=== PATIENT | female | born 1935 | race Caucasian/White ===

== ENCOUNTER 2024-08-07 10:59 | Inpatient (IN) | payer OTHER, SELFPAY ==
[2024-08-07] VITALS (9 sets, daily range): BP systolic 115–157; BP diastolic 53–90; O2SAT 94
--- NOTE | 2024-08-07 03:00 | ED.GENMED ---
History of Present Illness
<FER Schultz - Last Filed: 08/07/24 05:52>
General
Chief Complaint: Weakness
Exam Limitations: dementia
Time Seen by Provider: 08/07/24 02:59
History of Present Illness
History of Present Illness:
Patient is an 89 year old with a history of multiple falls coming into the ED complaining of weakness x 1 hour. She claims she went to go to the bathroom and her legs gave out and couldn't get back up. She denies hitting her head. She denies any
pain anywhere but her right big toe is bloody. Patient says she has generalized weakness throughout her body and rates it as mild. She says she has fallen like this in the past a bunch of times, but has always been able to get back up. Patient
denies saddle anesthesia dysuria numbness tingling chest pain palpitations shortness of breath.
Patient has a history of smoking and drinking.
Past History
<FER Schultz - Last Filed: 08/07/24 05:52>
Past History
ED Past Medical History: Hypothyroidism, Psychiatric and Other (Mild dementia, bundle branch block, lichen planus)
ED Past Surgical History: Gynecological (oophorectomy), Urological (Bladder sling) and Other (Breast biopsy/benign)
Social History
Tobacco: Former smoker
Alcohol: Daily (Wine 3 glasses)
Personal:
Living: with family
Employment: Retired
Family History
Family History: Other (noncontributory)
Review of Systems
<FER Schultz - Last Filed: 08/07/24 05:52>
Review of Systems
Constitutional: Reports no symptoms
Respiratory: Reports no symptoms
Cardiac: Reports no symptoms
ABD/GI: Reports no symptoms
: Reports no symptoms
Neurological: Reports weakness
Phy Exam
<FER Schultz - Last Filed: 08/07/24 05:52>
Physical Exam
Physical Exam:
see physical
Cardiovascular Exam
Cardiovascular Exam: regular rate/rhythm, no edema, no gallop, no JVD and no murmur
Pulmonary Exam
Pulmonary Exam: lungs clear, no respiratory distress, no rales, chest non tender, no crackles, no rhonchi, no stridor, no wheezing and no cough
Sensory
Sensory Exam: intact
Course
<ST MarionID - Last Filed: 08/07/24 05:52>
Orders/Labs/Results
Orders:
Orders
08/07/24
WOUND/OSTOMY CONSULT Routine
Reason for Consult: Great toe and Abdomen
08/07/24 03:01
Cardiac Monitoring- Treatment ONCE
CR Chest - 2 Views Urgent
Comment:
Reason For Exam: weakness
CR Toe(s) Min 2 Vw Right Urgent
Comment:
Reason For Exam: bloody big toe after fall
08/07/24 03:05
Alcohol Urgent
Complete Blood Count/With Diff Urgent
Comprehensive Metabolic Panel Urgent
Free T4 Urgent
Procalcitonin Urgent
PCT Algorithmm Indication: Sepsis
TSH Reflex To Free T4 Urgent
08/07/24 04:22
0.9% Sodium Chloride 500 ml [Nss] 500 ml IV BOLUS
08/07/24 04:55
Admit/Transfer Patient As Directed
Co-Sign Provider:
Level of Care: Observation services
Assign to:: Medical/Surgical
Physician / Group: Hospitalist
Diagnosis: Weakness
PRN Pain Medication Management As Directed
May give lesser potent ordered pain med per pt: Yes
preference::
Protocol:: Medication orders for pain may be administered in a
manner that supports deferring to patient preference
when the pt is:
- Requesting an ordered lesser potent pain medication.
Least to most potent pain medications are defined
as: acetaminophen < NSAID < tramadol < opioids
(morphine, oxycodone, hydromorphone).
- Requesting a lesser dose of the same medication IF
ORDERED.
- Requesting a less intrusive route of administration
if both routes are prescribed by the provider (PO <
IV).
08/07/24 04:56
Code Status As Directed
Resuscitation Status: Full Code
08/07/24 04:58
Add On- LAB Stat
Tests Added?: alcohol level, tsh + reflex free T4
08/07/24 05:00
Flush (0.9% Sodium Chloride) [Flush (Nss)] See Dose Instructions IV PER PROTOCOL
08/07/24 05:18
COVID-19 Antigen Urgent
Source: Nasal Swab
Urinalysis Reflex To Culture Urgent
Date Specimen was Collected: 08/07/24
Time Specimen was Collected: 05:15
Urine Microscopic Reflex Cult Urgent
Urine Culture Urgent
PAULETTE Source: U
Specimen Description:
Date Specimen was Collected: 08/07/24
Time Specimen was Collected: 05:15
08/07/24 Breakfast
Regular
At Your Request: Non-Participating
Does patient need a safe tray?: No
Levothyroxine [Synthroid] 88 mcg PO DAILY @ 0600
08/07/24 07:30
Acetaminophen [Tylenol] 650 mg PO Q4HPRN PRN
Bisacodyl [Dulcolax] 10 mg RECTAL [id number] PRN
Docusate W/Senna [Senokot-S] 1 tablet PO BIDPRN PRN
Polyethylene Glycol Powder [Miralax] 17 grams PO DAILYPRN PRN
Tramadol HCl [Ultram] 50 mg PO Q6HPRN PRN
08/07/24 07:30
Case Management Consult ONCE
Case Management Consult: Discharge Planning
Activity As Directed
Activity Level: With Assistance
Vital Signs As Directed
Frequency: Per unit guidelines
Pt Eval And Treat Routine
Activity Level: With Assistance
DX Deep Vein Thrombosis Video Routine
08/07/24 07:59
Pt Screening Request from Omid Routine
08/07/24 08:00
Calcium Carbonate [Oscal Magdiel 500] 500 mg PO DAILY
FOLic ACID [Folvite] 1 mg PO DAILY
Sertraline HCl [Zoloft] 50 mg PO DAILY
Thiamine HCl [Vitamin B1] 100 mg PO BID
08/07/24 10:00
CefTRIAXone [Rocephin] 1,000 mg IV Q24H
Sterile Water [Sterile Water For Injection] 10 ml IV Q24H
08/07/24 18:00
Enoxaparin Sodium [Lovenox] 40 mg SC QPM
08/07/24 20:00
Ketoconazole [Nizoral 2% Cream] See Dose Instructions TOPICAL BID
08/10/24 08:00
Mirabegron Extended Release [Myrbetriq Extended Release] 50 mg PO DAILY
Abnormal Lab Results
08/07/24 08/07/24
03:05 05:18
WBC 13.3 H 10^3/uL
(4.8-10.8)
RBC 3.80 L 10^6/uL
(4.20-5.40)
Hgb 11.9 L g/dL
(12.0-16.0)
Hct 34.6 L %
(37.0-47.0)
MCH 31.3 H pg
(27.0-31.0)
MPV 11.2 H fL
(7.4-10.4)
Abs Immat Gran (auto) 0.1 H 10^3/uL
(0-0.05)
Absolute Neuts (auto) 10.4 H 10^3/uL
(1.4-6.5)
Absolute Monos (auto) 1.5 H 10^3/uL
(0.1-0.6)
Immature Gran % 0.8 H %
(0-0.5)
Neutrophils % 78.3 H %
(42.2-75.2)
Lymphocytes % 9.4 L %
(20.5-51.1)
Monocytes % 11.2 H %
(1.7-9.3)
Carbon Dioxide 21 L mmol/L
(22-30)
BUN 22 H mg/dl
(7-17)
Glucose 132 H mg/dl
(70-99)
Total Protein 5.9 L g/dl
(6.3-8.2)
TSH (Reflex) 5.36 H uIU/ml
(0.47-4.68)
Ur Occult Blood Reflex 3+ A
(Negative)
Urine Nitrite (Reflex) Positive A
(Negative)
Leukocyte Esterase Rfl 2+ A
(Negative)
Urine RBC 3-6 A /HPF
(0-2)
Urine WBC (Reflex) 50-60 A /HPF
(0-5)
Urine Bacteria (Reflex) Many A
(Negative)
Urine Albumin (Reflex) 1+ A
(Neg - Trace)
08/07/24 03:05
08/07/24 03:05
Vital Signs
Initial and Last Documented VS:
Initial Vital Signs
Temp Pulse Resp BP Pulse Ox
99.3 F 96 18 134/78 98
08/07/24 02:35 08/07/24 02:35 08/07/24 02:35 08/07/24 02:35 08/07/24 02:35
Last Documented Vital Signs
Temp Pulse Resp BP Pulse Ox
97.4 F 78 16 109/64 99
08/09/24 15:19 08/09/24 15:19 08/09/24 15:19 08/09/24 15:19 08/09/24 15:24
<Cas Mcintyre, DO - Last Filed: 08/11/24 22:03>
Orders/Labs/Results
Orders:
Orders
08/07/24
WOUND/OSTOMY CONSULT Routine
Reason for Consult: Great toe and Abdomen
08/07/24 03:01
Cardiac Monitoring- Treatment ONCE
CR Chest - 2 Views Urgent
Comment:
Reason For Exam: weakness
CR Toe(s) Min 2 Vw Right Urgent
Comment:
Reason For Exam: bloody big toe after fall
08/07/24 03:05
Alcohol Urgent
Complete Blood Count/With Diff Urgent
Comprehensive Metabolic Panel Urgent
Free T4 Urgent
Procalcitonin Urgent
PCT Algorithmm Indication: Sepsis
TSH Reflex To Free T4 Urgent
08/07/24 04:22
0.9% Sodium Chloride 500 ml [Nss] 500 ml IV BOLUS
08/07/24 04:55
Admit/Transfer Patient As Directed
Co-Sign Provider:
Level of Care: Observation services
Assign to:: Medical/Surgical
Physician / Group: Hospitalist
Diagnosis: Weakness
PRN Pain Medication Management As Directed
May give lesser potent ordered pain med per pt: Yes
preference::
Protocol:: Medication orders for pain may be administered in a
manner that supports deferring to patient preference
when the pt is:
- Requesting an ordered lesser potent pain medication.
Least to most potent pain medications are defined
as: acetaminophen < NSAID < tramadol < opioids
(morphine, oxycodone, hydromorphone).
- Requesting a lesser dose of the same medication IF
ORDERED.
- Requesting a less intrusive route of administration
if both routes are prescribed by the provider (PO <
IV).
08/07/24 04:56
Code Status As Directed
Resuscitation Status: Full Code
08/07/24 04:58
Add On- LAB Stat
Tests Added?: alcohol level, tsh + reflex free T4
08/07/24 05:00
Flush (0.9% Sodium Chloride) [Flush (Nss)] See Dose Instructions IV PER PROTOCOL
08/07/24 05:18
COVID-19 Antigen Urgent
Source: Nasal Swab
Urinalysis Reflex To Culture Urgent
Date Specimen was Collected: 08/07/24
Time Specimen was Collected: 05:15
Urine Microscopic Reflex Cult Urgent
Urine Culture Urgent
PAULETTE Source: U
Specimen Description:
Date Specimen was Collected: 08/07/24
Time Specimen was Collected: 05:15
08/07/24 Breakfast
Regular
At Your Request: Non-Participating
Does patient need a safe tray?: No
Levothyroxine [Synthroid] 88 mcg PO DAILY @ 0600
08/07/24 07:30
Acetaminophen [Tylenol] 650 mg PO Q4HPRN PRN
Bisacodyl [Dulcolax] 10 mg RECTAL [id number] PRN
Docusate W/Senna [Senokot-S] 1 tablet PO BIDPRN PRN
Polyethylene Glycol Powder [Miralax] 17 grams PO DAILYPRN PRN
Tramadol HCl [Ultram] 50 mg PO Q6HPRN PRN
08/07/24 07:30
Case Management Consult ONCE
Case Management Consult: Discharge Planning
Activity As Directed
Activity Level: With Assistance
Vital Signs As Directed
Frequency: Per unit guidelines
Pt Eval And Treat Routine
Activity Level: With Assistance
DX Deep Vein Thrombosis Video Routine
08/07/24 07:59
Pt Screening Request from Omid Routine
08/07/24 08:00
Calcium Carbonate [Oscal Magdiel 500] 500 mg PO DAILY
FOLic ACID [Folvite] 1 mg PO DAILY
Sertraline HCl [Zoloft] 50 mg PO DAILY
Thiamine HCl [Vitamin B1] 100 mg PO BID
08/07/24 10:00
CefTRIAXone [Rocephin] 1,000 mg IV Q24H
Sterile Water [Sterile Water For Injection] 10 ml IV Q24H
08/07/24 18:00
Enoxaparin Sodium [Lovenox] 40 mg SC QPM
08/07/24 20:00
Ketoconazole [Nizoral 2% Cream] See Dose Instructions TOPICAL BID
08/10/24 08:00
Mirabegron Extended Release [Myrbetriq Extended Release] 50 mg PO DAILY
Abnormal Lab Results
08/07/24 08/07/24
03:05 05:18
WBC 13.3 H 10^3/uL
(4.8-10.8)
RBC 3.80 L 10^6/uL
(4.20-5.40)
Hgb 11.9 L g/dL
(12.0-16.0)
Hct 34.6 L %
(37.0-47.0)
MCH 31.3 H pg
(27.0-31.0)
MPV 11.2 H fL
(7.4-10.4)
Abs Immat Gran (auto) 0.1 H 10^3/uL
(0-0.05)
Absolute Neuts (auto) 10.4 H 10^3/uL
(1.4-6.5)
Absolute Monos (auto) 1.5 H 10^3/uL
(0.1-0.6)
Immature Gran % 0.8 H %
(0-0.5)
Neutrophils % 78.3 H %
(42.2-75.2)
Lymphocytes % 9.4 L %
(20.5-51.1)
Monocytes % 11.2 H %
(1.7-9.3)
Carbon Dioxide 21 L mmol/L
(22-30)
BUN 22 H mg/dl
(7-17)
Glucose 132 H mg/dl
(70-99)
Total Protein 5.9 L g/dl
(6.3-8.2)
TSH (Reflex) 5.36 H uIU/ml
(0.47-4.68)
Ur Occult Blood Reflex 3+ A
(Negative)
Urine Nitrite (Reflex) Positive A
(Negative)
Leukocyte Esterase Rfl 2+ A
(Negative)
Urine RBC 3-6 A /HPF
(0-2)
Urine WBC (Reflex) 50-60 A /HPF
(0-5)
Urine Bacteria (Reflex) Many A
(Negative)
Urine Albumin (Reflex) 1+ A
(Neg - Trace)
08/07/24 03:05
08/07/24 03:05
Vital Signs
Initial and Last Documented VS:
Initial Vital Signs
Temp Pulse Resp BP Pulse Ox
99.3 F 96 18 134/78 98
08/07/24 02:35 08/07/24 02:35 08/07/24 02:35 08/07/24 02:35 08/07/24 02:35
Last Documented Vital Signs
Temp Pulse Resp BP Pulse Ox
97.4 F 78 16 109/64 99
08/09/24 15:19 08/09/24 15:19 08/09/24 15:19 08/09/24 15:19 08/09/24 15:24
<FER Schultz - Last Filed: 08/07/24 05:52>
MDM/Problems Addressed
Differential Diagnosis Includes:
broken big toe, sepsis, weakness
MDM/Problems Addressed:
work up for sepsis blood work and get xray on her right foot. 535a update patient is asleep
<FER Schultz - Last Filed: 08/07/24 05:52>
*Critical Care Note
Total Time (30-74mins, 75-104mins- exclusive of procedures): Not Applicable
ED Attending Note
<FER Schultz - Last Filed: 08/07/24 05:52>
-
Portions of this chart may have been created with voice recognition software.� Occasional wrong word or��sound alike� substitutions may have occurred due to the inherent limitations of voice recognition software.
<Cas Mcintyre DO - Last Filed: 08/11/24 22:03>
ED Attending Note
Patient seen and examined by attending physician: Yes
I performed the substantive portion of visit, reviewed & personally made and approve the management plan that is documented in note by myself or LUZMA.: Yes
ED Attending Note:
Pleasantly demented 89-year-old female from home presents via EMS after a fall. Patient was walking to the bathroom when she started to feel weak. She reports that her legs gave out. Patient attempted to sit on the ground but is unsure if she
fell in the process. She was able to get back up and states that she feels too weak. Denies fever but states she did feel flushed. Patient reports no chest pain or shortness of breath. Patient was seen in conjunction with the PA student. I have
reviewed and agree with the history and treatment plan presented. On my independent physical exam, patient is awake, alert, and able to respond to questions. Heart is regular rate and rhythm. Lungs are clear bilaterally. Abdomen is soft
nontender. Skin is warm and dry. Moves all 4 extremities. There is some bruising and dried blood about the great toe on the right. She has very mild tenderness to palpation. There is some bruising about the right great toe. The nail is
slightly avulsed. There is good capillary refill..
Discharge Plan
Departure
Patient Disposition: Admit
Date of Disposition: 08/07/24
Time of Disposition: 04:28
Admit to: Telemetry
Presentation/result/management discussed w/ accepting MD/DO: Hospitalist
Consults for patient: Case Management
Condition: Fair
Discharge Problem:
Weakness, Dementia
Interventions
Interventions:
*Risk Screen - Suicide Last Done: 08/07/24 02:35
*General Assessment Last Done: 08/07/24 02:35
*Neglect/Abuse Screening Last Done: 08/07/24 02:35
ED- Fall Risk Assessment Last Done: 08/07/24 03:23
*ED COVID-19 Vaccine History Last Done: 08/07/24 02:35
*Nursing Disposition Last Done: 08/07/24 07:17
ED- Cardiac Assessment Last Done: 08/07/24 03:23
ED- Neurological Assessment Last Done: 08/07/24 03:23
ED- Pulmonary Assessment Last Done: 08/07/24 03:23
Discharge Date and Time
Discharge Date/Time: 08/07/24 07:18
--- NOTE | 2024-08-07 03:12 | DOWNTIME ---
There was a [employer] Downtime on 08/07/2024 from 0100 to 08/07/2024 at 0300. Downtime documentation of patient's care, including medication administrations, has been reconciled in the electronic record per guidelines. Refer to the
patient's paper chart under the miscellaneous tab to see printed paper medication records and downtime forms.
[2024-08-07 03:13] LABS: % Basophils 0.2 % (0-2); % Eosinophils 0.1 % (0-6); % Immature Granulocytes 0.8 % (0-0.5); % Lymphocytes 9.4 % (20.5-51.1); % Monocytes 11.2 % (1.7-9.3); % Neutrophils 78.3 % (42.2-75.2); Absolute Immature Granulocytes 0.1 10^3/uL (0-0.05); Absolute Lymphocytes 1.2 10^3/uL (1.2-3.4); Absolute Monocytes 1.5 10^3/uL (0.1-0.6); Absolute Neutrophils 10.4 10^3/uL (1.4-6.5); Hematocrit 34.6 % (37.0-47.0); Hemoglobin 11.9 g/dL (12.0-16.0); Mean Corp Hgb Conc. 34.4 g/dL (33.0-37.0); Mean Corpuscular Hgb 31.3 pg (27.0-31.0); Mean Corpuscular Volume 91.1 fL (81.0-99.0); Mean Platelet Volume 11.2 fL (7.4-10.4); Nucleated Red Blood Cells % 0 %; Platelet Count 205 10^3/uL (130-400); Red Cell Dist. Width 12.8 % (11.5-14.5); White Blood Cell Count 13.3 10^3/uL (4.8-10.8)
[2024-08-07 03:26] LABS: ALT (SGPT) 22 U/L (0-35); AST (SGOT) 34 U/L (14-36); Albumin 3.9 g/dl (3.5-5.0); Alkaline Phosphatase 105 U/L (38-126); Blood Urea Nitrogen 22 mg/dl (7-17); Carbon Dioxide 21 mmol/L (22-30); Chloride 100 mmol/L (98-107); Estimated Creatinine Clearance 44 ml/min; Glucose 132 mg/dl (70-99); Potassium 4.2 mmol/L (3.5-5.1); Sodium 135 mmol/L (135-145); Total Bilirubin 0.5 mg/dl (0.2-1.3); Total Protein 5.9 g/dl (6.3-8.2); eGFR > 60.00
[2024-08-07 03:42] LABS: Procalcitonin 0.18 ng/ml (0.0-0.25)
--- NOTE | 2024-08-07 04:33 | HPS.HSE ---
Family Physician
-
Family Physician: Marty Flores
Chief Complaint
-
Weakness
History of Present Illness
This is a 89-year-old female who has past medical history significant for dementia, hypothyroidism, depression, and anxiety presenting to the emergency department after having episode of fall at home.
Patient unable to provide much history. She still lives at home with her elderly spouse. History provided to staff by the daughter. The daughter reported that EMS was called twice for assist. The first time was at 4 PM and the patient was
assisted and remained at home. The second time was later in the evening when the patient was walking to the bathroom and pain leg gave way and she just went down to the floor. This was observed by the daughter and the patient did not hit her head.
EMS was called once again for assist as the patient could not get up. She was just sitting on the floor. She was then brought to the ED. Patient herself states that she only remembers not being able to get up from the floor but not but not how
she fell or how she stubbed her toe. Nursing staff wonder about the patient had feces covering lower back and buttocks. She also moisture associated skin injury in the groin as well as below the left breast. She can answer simple yes/no questions
and denies any symptoms. She lives with her elderly spouse who is also has cognitive decline. Patient she denies any urinary symptoms, fevers chills cough wheezing chest pain palpitations lightheadedness dizziness or shortness of breath. She has
had no lower extremity swelling. She denies having any new pain in her back, hips knees or legs.
In the emergency department she had a low-grade temp of 90.3, blood pressure was 134/78 pulse 95 with normal saturation on room air. Chest x-ray showed no acute infiltrates. CBC shows a white count of 13.3 but otherwise unremarkable. Chemistries
showed a normal sodium potassium BUN and creatinine. She had x-ray of the right foot for small toe ecchymosis. There was no obvious fracture or dislocation at this time. Urinalysis is pending availability of urine.
Medical History
Past Medical History
Past Medical History: Reports Dementia and Hypothyroidism
Past Surgical History: Reports Other (Bladder sling, breast biopsy-benign, oophorectomy)
Social History
Tobacco: Former Smoker
Alcohol: Other (Prior notes indicate that she drinks alcohol daily but she is unable to provide history of Distamine this time.)
Drug: None
Personal:
Living: With Family
Employment: Retired
Family History
Family History: Not pertinent
Allergies / Home Medications
Allergies reflects when Allergies were last updated in [employer].
Home Medications with original date entered in [employer]
Allergy/Medication List:
Allergies
Allergy/AdvReac Type Severity Reaction Status Date / Time
No Known Allergies Allergy Verified 08/07/24 03:12
Home Medications
calcium carbonate 500 mg PO DAILY 12/16/09
levothyroxine 88 mcg tablet 88 mcg PO DAILY 01/17/23
mirabegron 50 mg tablet,extended release 24 hr (Myrbetriq) 50 mg PO DAILY 01/17/23
sertraline 100 mg tablet 100 mg PO DAILY 01/17/23
folic acid 1 mg tablet 1 mg PO DAILY #0 tabs 01/24/23
thiamine HCl (vitamin B1) 100 mg tablet 100 mg PO BID #0 tabs 01/24/23
Review of Systems
-
Unable to obtain full review of systems at this time due to: Dementia
Physical Exam
Vital Signs
Vital Signs
Temp Pulse Resp BP Pulse Ox
99.3 F 95 23 134/78 94
08/07/24 02:35 08/07/24 04:00 08/07/24 03:15 08/07/24 02:35 08/07/24 04:00
Physical Exam
General: Well Nourished, No Apparent Distress, Comfortable and Conversant
HEENT: NormoCephalic, Anicteric, Moist mucous membranes and Atraumatic
Respiratory: Clear
Cardiac: S1/S2 and Regular Rhythm
Breast: Deferred by me
GI: Soft, Non Tender, Normal Bowel Sounds and Distended
Rectal: Deferred by Provider
Genito-urinary: No costovertebral tender
Musculoskeletal: No Clubbing, No Cyanosis and No Edema
Skin: Warm and Rash (Bilateral groin moisture associated dermatitis.)
Neuro: Awake, Oriented (to person only), No Motor Deficits, Cranial Nerves Intact and No Sensory Deficits
Hematologic/Lymphatic: No Lymphadenopathy
Psych: Calm and Confused
Laboratory Results
-
08/07/24 03:05
08/07/24 03:05
Laboratory Results
Total Bilirubin 0.5 mg/dl (0.2-1.3) 08/07/24 03:05
AST 34 U/L (14-36) 08/07/24 03:05
ALT 22 U/L (0-35) 08/07/24 03:05
Alkaline Phosphatase 105 U/L (38-126) 08/07/24 03:05
Data Reviewed
-
Diagnostic Radiology: Image Personally Visualized and interpreted
Lab Data: Labs Reviewed by me
Old Records: Reviewed
Impression/Plan
-
IMPRESSION:
89-year-old with history of hypothyroidism, anxiety/depression and dementia who presents to the emergency department from home following EMS call for assist. Patient apparently went down without any significant injury and was unable to get herself
up from a standing position. He apparently has a walker but no other assist devices at home. Initial evaluation in the ED shows no acute abnormalities. Specifically she was hemodynamically stable afebrile and in no acute distress. UA is pending.
Chest x-ray is clear. He had a slight leukocytosis. Chemistries were all within normal limits. Procalcitonin was negative.
PLAN:
1. Weakness - Patient unable to get up from sitted position twice today and was brought to ED. Neurological exam is non-focal. Did not detect signficant unilateral weakness in the upper or lower extremities. No sensory deficits. Had evidence of
feces on the lower back on initial arrival but denies diarrhea or incontinence. No obvious infection at this time.
- admit to med surg
- possibly mild dehydration, getting iv fluid in ED x 1
- u/a pending
- check etoh, tsh, covid 19
- pt eval.
2. Social - Patient lives with elderly spouse with cognitive decline. She appears to have more significant decline in cognitive function compared to last year. Poor sanitation and care based on history and skin findings.
- case management, patient may need placement
- to discuss with daughter.
3. Hypothyroid -
- check tsh/free t4
4. Anxiety/depression
- continue sertraline
DVT PPX - lovenox sq
Code status - full code.
[2024-08-07] MEDS: NSS 500 IV (04:39)
[2024-08-07 05:32] LABS: Alcohol None Detected
[2024-08-07 05:34] LABS: COVID-19 Antigen Negative (Negative); Urine Albumin 1+ (Neg - Trace); Urine Bilirubin Negative (Negative); Urine Character Clear (Clear); Urine Color Yellow; Urine Glucose Negative (Negative); Urine Ketone Negative (Negative); Urine Leukocyte 2+ (Negative); Urine Nitrite Positive (Negative); Urine Occult Blood 3+ (Negative); Urine Urobilinogen Negative (Neg - 1+)
[2024-08-07 05:43] LABS: TSH Reflex To Free T4 5.36 uIU/ml (0.47-4.68)
[2024-08-07 06:02] LABS: Urine Bacteria Many (Negative); Urine Squamous Cell 0-2 /LPF (Few); Urine White Cell 50-60 /HPF (0-5)
[2024-08-07 06:13] LABS: Free T4 1.19 ng/dl (0.78-2.19)
[2024-08-07] MEDS: VITAMIN B1 100 MG PO ×2 (09:12→20:39)
[2024-08-07] MEDS: OSCAL CAL 500 500 MG PO (09:12)
[2024-08-07] MEDS: ZOLOFT 50 MG PO (09:12)
[2024-08-07] MEDS: FOLVITE 1 MG PO (09:12)
[2024-08-07] MEDS: SYNTHROID PO (09:12)
[2024-08-07] MEDS: ROCEPHIN 1000 MG IV (09:13)
[2024-08-07] MEDS: STERILE WATER FOR INJECTION 10 ML IV (09:13)
--- NOTE | 2024-08-07 10:16 | W.PN.UPDATE ---
Update Note
Progress Note Update
No complaints this morning. Denies lightheadedness, dizziness, chest pain, shortness of breath, nausea, vomiting, diarrhea, constipation, abdominal pain. Tells me she came to ER for weakness.
Gen: Resting comfortably in bed, no acute distress. AAO to person and place, did not know date. Frail, elderly
Heart/lungs: RRR. CTAB. Nonlabored breathing.
GI: Bowel sounds present. Abdomen soft, nontender, nondistended.
MSK: Warm, well perfused. Dorsalis pedal pulses palpable bilaterally.
A/P
UA suggestive of UTI. Urine culture pending.
Begin IV ceftriaxone, reassess antibiotics when urine culture results
Continue IVF
TSH elevated 5.36. Will assess patient compliance with synthroid prior to titrating dose
Anemia- appears to be at baseline, no concern for acute blood loss
See same day H&P for additional details
--- NOTE | 2024-08-07 10:17 | WOUNDNOTE ---
R GREAT TOE NAIL
--- NOTE | 2024-08-07 10:17 | WOUNDNOTE ---
BTW R GREAT TOE AND 2ND TOE
--- NOTE | 2024-08-07 10:18 | WOUNDNOTE ---
L UPPER ABDOMEN/ BREAST SKIN FOLD
--- NOTE | 2024-08-07 10:19 | WOUNDNOTE ---
WON RN note: Patient admitted with UTI.
See H&P for complete history. Lives with daughter Cristal.
PMH: R breast lumpectomy, lichen planus, BBB, L leg biopsy, ovary removal, cataract surgery and frequent falls.
Wound Location and type/assessment: Patient admitted with: L upper abdomen/breast skin fold with scattered angry red fungal rash, barrier cream in use. R breast with intact skin. R great toe with dried blood, after cleaning no open wounds visible.
Residual dried blood around toe nail, patient confirmed recent nail trim done. Toe x ray pending. Patient able to turn self to side, Sacrum and heels are blanchable red. Silicone foam in use on sacrum.
Appetite: Poor, had few bites of oatmeal. Patient reports she eats minimal at home, daughter cooks dinner.
Pressure redistribution devices in place: On [employer] bed, asked PCT to apply air overlay provided. Air chair cushion.
Plan: Will order stronger fungal cream for L upper abdomen/breast. Skin prep applied to R great toe nail, open to air. Can apply dry dressing if starts to bleed, for now site is dry. Applied adhesive foams to heels to protect. Pillow placed under
calves by PCT. Brought in air cushion to use when sitting.
Will confirm orders with hospitalist and updated nurse Hyacinth on the above.
Updated care plan and will follow as needed.
Note to case management of equipment requested for discharge: None.
[2024-08-07] MEDS: LOVENOX 40 MG SC (18:17)
[2024-08-07] MEDS: NIZORAL 2% CREAM 1 APPLIC TOPICAL (20:39)
[2024-08-07] MEDS: TYLENOL 650 MG PO (23:23)
[2024-08-08] MEDS: DESENEX/MITRAZOL/ZEASORB 1 APPLIC TOPICAL ×3 (01:00→20:13)
[2024-08-08] MEDS: SYNTHROID 88 MCG PO (05:55)
[2024-08-08 07:30] VITALS: BP 132/66
[2024-08-08 07:35] LABS: Hemoglobin 12.7 g/dL (12.0-16.0); Mean Corp Hgb Conc. 34.3 g/dL (33.0-37.0); Mean Corpuscular Hgb 31.4 pg (27.0-31.0); Mean Corpuscular Volume 91.4 fL (81.0-99.0); Mean Platelet Volume 11.7 fL (7.4-10.4); Platelet Count 230 10^3/uL (130-400); Red Blood Cell Count 4.05 10^6/uL (4.20-5.40); White Blood Cell Count 21.8 10^3/uL (4.8-10.8)
[2024-08-08 08:02] LABS: Blood Urea Nitrogen 19 mg/dl (7-17); Calcium 8.8 mg/dl (8.4-10.2); Carbon Dioxide 26 mmol/L (22-30); Chloride 98 mmol/L (98-107); Estimated Creatinine Clearance 38 ml/min; Glucose 99 mg/dl (70-99); Iron 21 ug/dl (37-170); Potassium 4.1 mmol/L (3.5-5.1); Sodium 135 mmol/L (135-145); eGFR > 60.00
[2024-08-08 08:11] LABS: Percent Saturation 9 % (20-50); Total Iron Binding Capacity 216 ug/dl (265-497)
[2024-08-08] MEDS: VITAMIN B1 100 MG PO ×2 (08:17→20:13)
[2024-08-08] MEDS: OSCAL CAL 500 500 MG PO (08:17)
[2024-08-08] MEDS: NIZORAL 2% CREAM 1 APPLIC TOPICAL ×2 (08:17→20:14)
[2024-08-08] MEDS: FOLVITE 1 MG PO (08:17)
[2024-08-08] MEDS: ZOLOFT 50 MG PO (08:17)
--- NOTE | 2024-08-08 10:30 | W.PN.HOSP.TC ---
Addendum entered and electronically signed by Drew Jenkins MD 08/08/24 13:04:
I saw and evaluated the patient. I reviewed the resident�s note and agree with findings and plan as documented in the resident�s note.
Denies CP/SOB. Reports lower abdominal pressure.
Gen: NAD, Awake and alert
Eyes: EOMI, PERRLA, no scleral icterus.
Neck: supple.
CV: RRR, +S1/S2, no m/r/g.
Resp: CTAB, no rales, wheezes, or rhonchi.
Abd: +BS, soft, mild TTP in the lower abdomen, ND
Skin: No rashes.
Neuro: CN 2-12 intact, non-focal.
Psych: slightly flat affect.
CT brain: No acute intracranial abnormality noted.
Generalized weakness and ambulatory dysfunction:
-Patient with history of NPH s/p shunt
-CT brain unremarkable as above
-PT/OT
UTI:
-with worsening leukocytosis
-check BCxs
-c/s ID
-afebrile, hemodynamically stable
Original Note:
Today's Communication/Plan
-
head CT this AM
Assessment / Plan
Assessment / Plan
89yo F with PMH dementia, hypothyroidism, normal pressure hydrocephalus s/p shunt, who presented to ED 08/07 for weakness and multiple falls.
Generalized weakness
Ambulatory dysfunction
H/o normal pressure hydrocephalus s/p shunt
- Obtain head CT
- PT eval- rec SNF at discharge
- OT eval ordered
- Continue IVF
- Fall precautions
UTI
Leukocytosis
- UA consistent with UTI, urine culture E coli
- WBC 13.3 --> 21.8
- Remains afebrile
- Continue IV ceftriaxone, will reassess antibiotics when sensitivities available
- Trend cbc, follow temperature curve
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
- Quant alcohol negative on admission
- MSAS scores 2, continue to monitor
- Continue home thiamine supplement
Hypothyroidism
- TSH elevated 5.36
- Continue home synthroid
Chronic anemia
- Hgb 11.9 on admission --> 12.7, appears to be at baseline
- No concern for acute blood loss
- Suspect iron deficiency, ferritin pending
- IV Fe
Depression/anxiety
- Continue home sertraline 50mg daily
Code status: full
VTE ppx: lovenox 40mg sc qpm
Diet: regular
Dispo planning: likely SNF at discharge
Anticipated Discharge: 24 - 48 hours
Subjective/Interval History
-
Date of Service: August 08, 2024
No acute events overnight. Reports mild back pain this morning. Denies headache, lightheadedness, dizziness, chest pain, shortness of breath, nausea, vomiting, diarrhea, constipation.
Objective Data
-
Labs:
Laboratory Results
08/08/24
06:56
WBC 21.8 H
Hgb 12.7
Hct 37.0
Plt Count 230
Sodium 135
Potassium 4.1
Chloride 98
Carbon Dioxide 26
BUN 19 H
Creatinine 0.8
Glucose 99
Calcium 8.8
Vital Signs:
Vital Signs
Temp Pulse Resp BP Pulse Ox
97.7 F 71 16 132/66 98
08/08/24 07:30 08/08/24 07:30 08/08/24 07:30 08/08/24 07:30 08/08/24 07:30
I&O
08/07/24 08/08/24 08/09/24
06:59 06:59 06:59
Intake Total 960 / 960
Output Total 350 / 350
Balance 610 / 610
Review of Systems
-
History Source: Patient
All other systems: Reviewed and negative
Physical Exam
-
General: Well Developed, No Apparent Distress, Comfortable, Appears Chronically Ill and Cachectic
HEENT: Normocephalic and Atraumatic
Respiratory: Clear to Auscultation (anterior lung quiñonez) and Non Labored Respirations
Cardiac: Regular Rhythm and S1/S2
GI: Soft, Nontender, Nondistended and Normal Bowel Sounds
Musculoskeletal: No Cyanosis and No Edema
Skin: Warm and Dry
Neuro: Awake and Alert
Psych: Calm and Apparent Dementia
Data Reviewed
-
Diagnostic Radiology: Image personally visualized and interpreted, Report Reviewed by me and Discussed with Physician
CT Scan: Image personally visualized and interpreted, Report Reviewed by me and Discussed with Physician
Labs: Labs Reviewed by me and Discussed with Physician
[2024-08-08] MEDS: STERILE WATER FOR INJECTION 10 ML IV (10:37)
[2024-08-08] MEDS: ROCEPHIN 1000 MG IV (10:37)
[2024-08-08 11:50] VITALS: BP 132/66; PULSE 71
[2024-08-08 11:52] VITALS: BP 111/66; PULSE 73; O2SAT 98
--- NOTE | 2024-08-08 13:10 | CON.ID ---
Consultation
-
Date/Time Consultation Requested: 08/08/2024 1116
Date/Time Consultation Performed: 08/08/2024 1311
Requesting Provider: Dr. Jenkins
Performing Provider: Dr. Cobb
Reason for Consultation: Leukocytosis; suspected urinary tract infection
Chief Complaint / Past History
History of Present Illness
Christa Rivero is an 89-year-old female being evaluated the request of Dr. Jenkins in regards to leukocytosis and suspected urinary tract infection. History is obtained from chart review, along with patient interview.
The patient has a history of hypothyroidism and mild dementia and presented to [facility] on 08/07 following several falls at home. According to reviewed records the patient had several falls recently and EMS was called to assist getting her
up. She was brought to the hospital for the first time, but when they were called out again it was deemed that she may need further care and she was brought to the ED. She is not sure whether she hit her head during the falls. She denies any
recent urinary symptoms, including denying dysuria and hematuria. She denies any cough or shortness of breath. She denies any fevers or chills, but notes that she is always cold.
At admission she was found to have a low-grade leukocytosis which has increased today. Urine cultures are growing E. coli, and Infectious Diseases is asked to comment on further antimicrobial therapy.
Past History
Additional Past Medical History:
Hypothyroidism
Dementia
Lichen planus
Additional Past Surgical History:
Oophorectomy
Bladder sling
Breast biopsy
Allergy History:
No Known Allergies Allergy (Verified 08/07/24 03:12)
Medications Reviewed: Yes
Current Antibiotics:
Ceftriaxone 1 g IV every 24 hours
Social History
Tobacco: Former Smoker
Alcohol: None
Drug: None
Personal:
Living: With Family
Employment: Retired
Family History
Family History: Not Pertinent
Review of Systems
Vital Signs
Temp Pulse Resp BP Pulse Ox
97.7 F 71 16 132/66 98
08/08/24 07:30 08/08/24 07:30 08/08/24 07:30 08/08/24 07:30 08/08/24 08:20
Physical Exam
Physical Exam
Constitutional: No Acute Distress, Comfortable, Chronically Ill, Non-toxic and Cachetic
Head: Normocephalic
Eyes: Pupils Equal, Pupils Round, No Conjunctival Hemorrhage and Sclera Anicteric
Oral: No Thrush and No Ulcers
Cardiovascular: Regular Rate and S1/S2; Negative S3/S4
Pulmonary: Clear; Negative Wheezes, Rales or Rhonchi
Gastrointestinal: Soft, Non Tender, Non Distended, Normal Bowel Sounds, No Rebound and No Guarding
Extremities: Negative Edema, Cyanosis or Erythema
Musculoskeletal: Negative Joint Swelling
Skin: Warm and Dry; Negative Rash or Jaundice
Neurological: Awake and Alert
Psychological: Confused
.
Lab / Diagnostic Study Results
08/08/24 06:56
08/08/24 06:56
Abs Immat Gran (auto) 0.1 10^3/uL (0-0.05) H 08/07/24 03:05
Absolute Neuts (auto) 10.4 10^3/uL (1.4-6.5) H 08/07/24 03:05
Absolute Lymphs (auto) 1.2 10^3/uL (1.2-3.4) 08/07/24 03:05
Absolute Monos (auto) 1.5 10^3/uL (0.1-0.6) H 08/07/24 03:05
Absolute Basos (auto) 0.0 10^3/uL (0-0.2) 08/07/24 03:05
Immature Gran % 0.8 % (0-0.5) H 08/07/24 03:05
Neutrophils % 78.3 % (42.2-75.2) H 08/07/24 03:05
Lymphocytes % 9.4 % (20.5-51.1) L 08/07/24 03:05
Monocytes % 11.2 % (1.7-9.3) H 08/07/24 03:05
Eosinophils % 0.1 % (0-6) 08/07/24 03:05
Basophils % 0.2 % (0-2) 08/07/24 03:05
Procalcitonin 0.18 ng/ml (0.0-0.25) 08/07/24 03:05
Ur Squamous Epith Cells 0-2 /LPF (Few) 08/07/24 05:18
Microbiology Results
Micro:
08/08/24 11:53 Blood Culture - Pending
Blood/Venous
08/08/24 11:26 Blood Culture - Pending
Blood/Venous
08/07/24 05:18 Urine Culture - Preliminary
Urine Escherichia coli
Imaging:
08/08/2024 CT head with contrast: No acute intracranial abnormality noted. Please see full dictation for additional detail.
08/07/2024 chest x-ray (2 view): No acute cardiopulmonary process noted.
Assessment / Plan
Leukocytosis; rising ?Reactive vs infection
Bacteriuria
Recent fall
Hypothyroidism
Dementia
Recommendations:
Old records reviewed, and patient has history of pansensitive E. coli and blood in urine (2022)
Continue empiric ceftriaxone for the present.
Monitor white count and temperature curve.
Await further culture data to guide antimicrobial selection and potential de-escalation.
Further recommendations as additional data is returned.
[2024-08-08] MEDS: FERRLECIT 110 MG IV (13:35)
[2024-08-08 15:15] VITALS: BP 114/63
--- NOTE | 2024-08-08 15:22 | CM ---
KALI spoke with Christa at bedside regarding discharge to SNF. She has requested [facility] for transfer. CM placed referral to [facility] in [facility].
Await response from [facility] Admissions regarding ability to accept for short term SNF transfer. Will need authorization from [facility] for transfer to SNF pending acceptance at [facility].
KALI will continue to follow.
--- NOTE | 2024-08-08 16:43 | CM ---
Addendum entered by Radha Cano 08/09/24 14:32:
KALI spoke with April about transfer to [facility]. Call placed to her daughter to make her aware of transfer plans.
PLAN: Transfer to [facility] via Ambulance transport arranged for 6:30 PM.
[facility] Report:[phone]
[facility]
Original Note:
KALI submitted auth request for SNF admission to [facility] for April via [employer].
Auth approved for dates of service 08-09-2024 to 08-15-2024
Authorization number: [id number]
Plan: Transfer to [facility]. Request sent to [facility] [employer] this afternoon requesting ambulance transport to [facility] in AM with requested time of 11am.
[2024-08-08] MEDS: LOVENOX 40 MG SC (17:54)
[2024-08-08] MEDS: TYLENOL 650 MG PO (22:59)
[2024-08-08 23:28] VITALS: BP 145/74
[2024-08-09] MEDS: SYNTHROID 88 MCG PO (05:06)
[2024-08-09 07:10] VITALS: BP 140/79
[2024-08-09 07:26] LABS: Hematocrit 33.4 % (37.0-47.0); Hemoglobin 11.3 g/dL (12.0-16.0); Mean Corp Hgb Conc. 33.8 g/dL (33.0-37.0); Mean Corpuscular Volume 88.6 fL (81.0-99.0); Mean Platelet Volume 11.8 fL (7.4-10.4); Platelet Count 236 10^3/uL (130-400); Red Blood Cell Count 3.77 10^6/uL (4.20-5.40); Red Cell Dist. Width 13.1 % (11.5-14.5); White Blood Cell Count 17.6 10^3/uL (4.8-10.8)
[2024-08-09 07:53] LABS: Blood Urea Nitrogen 19 mg/dl (7-17); Calcium 8.7 mg/dl (8.4-10.2); Carbon Dioxide 25 mmol/L (22-30); Chloride 98 mmol/L (98-107); Estimated Creatinine Clearance 38 ml/min; Glucose 84 mg/dl (70-99); Potassium 3.8 mmol/L (3.5-5.1); Sodium 136 mmol/L (135-145); eGFR > 60.00
[2024-08-09] MEDS: DESENEX/MITRAZOL/ZEASORB 1 APPLIC TOPICAL (07:54)
[2024-08-09 07:55] VITALS: BP 140/79
[2024-08-09] MEDS: NIZORAL 2% CREAM 1 APPLIC TOPICAL (07:55)
[2024-08-09] MEDS: ZOLOFT 50 MG PO (07:55)
[2024-08-09] MEDS: FOLVITE 1 MG PO (07:55)
[2024-08-09] MEDS: VITAMIN B1 100 MG PO (07:55)
[2024-08-09] MEDS: OSCAL CAL 500 500 MG PO (07:56)
[2024-08-09] MEDS: FLUSH (NSS) 1 FLUSH IV ×2 (10:01→13:58)
[2024-08-09] MEDS: ROCEPHIN 1000 MG IV (10:01)
[2024-08-09] MEDS: STERILE WATER FOR INJECTION 10 ML IV (10:01)
--- NOTE | 2024-08-09 10:18 | W.PN.HOSP.TC ---
Addendum entered and electronically signed by Rosie Muro MD 08/09/24 16:28:
[facility] kidney neg
Addendum entered and electronically signed by Rosie Muro MD 08/09/24 14:31:
89-year-old female with falls. Patient drinks alcohol daily also per discussion with daughter.
I personally performed a history and physical exam of the patient and discussed management with the resident. I reviewed the resident's note and agree with the documented findings and plan of care HPI/CC except for changes in my documentation.
Apparent cognitive dysfunction
Vascular system S1-S2 appreciated
Chest clear to auscultation
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
CT head unremarkable
B12 borderline needs replacement also
PT OT
Neurology follow-up with patient's daughter
# Fever/E Coli UTI-continue amoxicillin
Normal creatinine
History of questionable right renal collecting system dilatation without stone-2022
[facility] kidneys
# Elevated white count/leukocytosis was even seen in December 2022-if this does not get better needs to follow-up with truer pinion and wheel
# Iron deficiency-replace iron p.o. outpatient GI follow-up
# Abnormal TSH-repeat as outpatient. Continue same dose of Synthroid
# History of positive SS-A , SS-B and ALBA-daughter was made aware that patient needs to follow-up with a certified nursing assistant instructor
# Cholelithiasis
# Moderate partial L3 vertebral compression fracture
# Cognitive impairment
# Depression-continue sertraline
# Daily alcohol use-cessation counseling. No evidence of withdrawal at present I discussed this with patient's daughter also
# Ex-smoker
# DVT prophylaxis-Lovenox
# Full code
[facility] kidneys before discharge
Discussed with infectious disease
Discussed with patient's daughter on the phone in detail
Total discharge coordination time more than 30 minutes
Original Note:
Today's Communication/Plan
-
discharge to SNF today
Assessment / Plan
Assessment / Plan
89yo F with PMH dementia, hypothyroidism, normal pressure hydrocephalus s/p shunt, who presented to ED 08/07 for weakness and multiple falls.
Generalized weakness
Ambulatory dysfunction
H/o normal pressure hydrocephalus s/p shunt
- Head CT 08/08 stable ventricle size and ventriculostomy catheter; additional findings include stable mild-moderate changes associated with chronic small vessel ischemic disease
- PT/OT eval- rec SNF at discharge
- Fall precautions
- B12 pending
- Stable for hospital discharge. Recommend follow up outpatient with neurosurgeon who placed shunt
UTI
Leukocytosis
- UA consistent with UTI, urine culture E coli pansensitive
- WBC 13.3 --> 21.8 --> 17.6
- Remains afebrile
- Continue IV ceftriaxone while inpatient. Transition to PO amoxicillin at discharge.
- Will need follow up with PCP to monitor leukocytosis, recommend repeat cbc in 1 week. If remains elevated, consider outpatient hematology referral.
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
- Quant alcohol negative on admission
- MSAS scores 1-2, continue to monitor
- Continue home thiamine supplement
Hypothyroidism
- TSH elevated 5.36
- Continue home synthroid
- Follow up with PCP and repeat TSH
Chronic anemia
- Hgb 11.9 on admission --> 11.3 today, appears to be at baseline
- No concern for acute blood loss
- S/p IV Fe given suspicion of iron deficiency
- Ferritin wnl, but Fe, TIBC, %saturation low. More consistent with anemia of chronic disease
- B12 and folate pending
Depression/anxiety
- Continue home sertraline 50mg daily
Code status: full
VTE ppx: lovenox 40mg sc qpm
Diet: regular
Dispo planning: SNF today
Anticipated Discharge: Today
Subjective/Interval History
-
Date of Service: August 09, 2024
No acute events overnight. No complaints. Denies lightheadedness, dizziness, chest pain, shortness of breath, nausea, vomiting, diarrhea, constipation. Tolerating PO diet. Requiring assistance with PT.
Objective Data
-
Labs:
Laboratory Results
08/09/24
06:38
WBC 17.6 H
Hgb 11.3 L
Hct 33.4 L
Plt Count 236
Sodium 136
Potassium 3.8
Chloride 98
Carbon Dioxide 25
BUN 19 H
Creatinine 0.8
Glucose 84
Calcium 8.7
Microbiology
08/07/24 05:18 Urine Culture - Final
Urine Escherichia coli
Vital Signs:
Vital Signs
Temp Pulse Resp BP Pulse Ox
97.5 F 70 16 140/79 98
08/09/24 07:55 08/09/24 07:55 08/09/24 07:55 08/09/24 07:55 08/09/24 07:55
I&O
08/08/24 08/09/24 08/10/24
06:59 06:59 06:59
Intake Total 960 / 960 480 / 480
Output Total 350 / 350
Balance 610 / 610 480 / 480
Review of Systems
-
History Source: Patient
All other systems: Reviewed and negative
Physical Exam
-
General: Well Developed, No Apparent Distress, Comfortable, Appears Chronically Ill and Cachectic
HEENT: Normocephalic and Atraumatic
Respiratory: Clear to Auscultation (anterior lung quiñonez) and Non Labored Respirations
Cardiac: Regular Rhythm and S1/S2
GI: Soft, Nontender, Nondistended and Normal Bowel Sounds
Musculoskeletal: No Cyanosis and No Edema
Skin: Warm and Dry
Neuro: Awake, Alert, Oriented, Nonfocal/Grossly Intact and Other (slow cognition)
Psych: Calm and Apparent Dementia
Data Reviewed
-
Diagnostic Radiology: Image personally visualized and interpreted, Report Reviewed by me and Discussed with Physician
CT Scan: Image personally visualized and interpreted, Report Reviewed by me and Discussed with Physician
Labs: Labs Reviewed by me and Discussed with Physician
--- NOTE | 2024-08-09 11:47 | W.PN.ID1 ---
Date of Service
Date of Service: August 09, 2024
Today's Communication
Transition to oral amoxicillin.
Assessment / Plan
Leukocytosis; rising ?Reactive vs infection
Bacteriuria
Recent fall
Hypothyroidism
Dementia
Recommendations:
Urine culture revealed presence of pansensitive E. coli.
Transition to oral amoxicillin for an additional 5 days.
Chief Complaint
-: UTI
Subjective / Review of Systems
Patient seen and examined. Reports feeling well. Denies specific complaints. No dysuria. No abdominal pain. No flank discomfort.
Vital Signs / Physical Exam
Vital Signs
Vital Signs
Temp Pulse Resp BP Pulse Ox
97.5 F 70 16 140/79 98
08/09/24 07:55 08/09/24 07:55 08/09/24 07:55 08/09/24 07:55 08/09/24 07:55
Physical Exam
Constitutional: No Acute Distress, Comfortable and Non-toxic
Eyes: No Conjunctival Hemorrhage and Sclera Anicteric
Cardiovascular: Regular Rate and S1/S2; Negative S3/S4
Pulmonary: Clear; Negative Wheezes or Rales
Neurological: Awake and Alert
Psychological: Calm
Objective Data
Lab Data
Lab Results
08/09/24 06:38
08/09/24 06:38
Estimated Creat Clear 38 ml/min 08/09/24 06:38
Total Bilirubin 0.5 mg/dl (0.2-1.3) 08/07/24 03:05
AST 34 U/L (14-36) 08/07/24 03:05
ALT 22 U/L (0-35) 08/07/24 03:05
Alkaline Phosphatase 105 U/L (38-126) 08/07/24 03:05
Most recent labs reviewed.
Chest X-Ray: Image Reviewed and Report Reviewed
Micro Results:
08/08/24 11:26 Blood Culture - Preliminary
Blood/Venous No Growth in 24 hours- Final report to follow
08/07/24 05:18 Urine Culture - Final
Urine Escherichia coli
08/08/24 11:53 Blood Culture - Pending
Blood/Venous
Imaging:
08/08/2024 CT head with contrast: No acute intracranial abnormality noted. Please see full dictation for additional detail.
08/07/2024 chest x-ray (2 view): No acute cardiopulmonary process noted.
Care Review
Plan reviewed with: Physician (Hospitalist and Resident)
[2024-08-09 13:22] LABS: Vitamin B12 363 pg/ml (239-931)
--- NOTE | 2024-08-09 13:57 | W.DCSUMMARY ---
Discharge Summary
Discharge Data
Date of Admission: 08/07/24
Date of Discharge: 08/09/24
-
Pending Results: Yes
Additional Pending Results:
B12, folate
Hospital Course
Discharging Physician : Dr. Ortega, Dr. Jordan
Disposition : SNF
Primary care physician : Marty Flores
Principal Discharge diagnosis : Generalized weakness, ambulatory dysfunction, urinary tract infection, leukocytosis
Chronic Discharge diagnosis : H/o normal pressure hydrocephalus s/p shunt, dementia, hypothyroidism, chronic anemia, h/o alcohol use, depression, anxiety
Hospital Course : Presented to ED for generalized weakness and multiple falls; no syncope, loss of consciousness, or head injury. She was found to have UTI with urine culture positive for pansensitive E Coli. She had leukocytosis throughout
hospitalization. She was treated with antibiotics and ID was consulted. PT/OT evaluated and recommended SNF at discharge. Head CT obtained given history of NPH with shunt, and imaging was stable. On day of discharge she was stable, and discharged to
SNF and will follow up with PCP. Recommend follow up with neurosurgeon who placed shunt as well. Also should follow up with taker down, neurologist, GI.
Important imaging findings :
Chest xray 08/07
FINDINGS:
There is no parenchymal opacification or vascular congestion. The cardiomediastinal silhouettes are within the limits of normal. Some tortuosity of the thoracic aorta is again seen correlating with age. There is no pneumothorax, pleural effusion or
mediastinal shift.
IMPRESSION:
No acute cardiopulmonary process.
Toe xray 08/07
FINDINGS: There are no findings to suggest recent cortical fracture, dislocation or focal cortical bony destructive process.
Some osseous degenerative changes are noted.
No radiopaque soft tissue abnormality is seen.
IMPRESSION:
No acute osseous abnormality.
Head CT 08/08
FINDINGS:
Stable right posterior approach ventriculostomy catheter terminating within the left lateral ventricle. The ventricles are stable in size, configuration, and position for age. There is no intra- or extra-axial mass, hemorrhage, or fluid collection.
No areas of abnormal mass effect or attenuation are noted. There is stable mild to moderate subcortical, deep, and periventricular white matter low-attenuation, compatible with changes of chronic small vessel ischemic disease. Visualized paranasal
sinuses are free of mucosal disease. No depressed calvarial fracture.
IMPRESSION:
No acute intracranial abnormality noted.
Renal ultrasound 08/09/28
FINDINGS: Ultrasound of the kidneys is performed.
Right kidney length is 8.5 cm, and is likely artifactually foreshortened because of positioning as seen on prior CT scan. There is preservation of renal parenchymal thickness. There is no sonographic evidence for pelvicalyceal dilation, mass, or
calculus.
Left renal length is 10.7 cm, and the left kidney has a normal sonographic appearance.
IMPRESSION: Asymmetric length of the kidneys, with measured right kidney length is smaller than the left, most likely due to artifactual foreshortening due to kidney position. No evidence for pelvicalyceal dilation bilaterally. No evidence for mass
or calculus bilaterally.
Procedure findings : N/A
Discharge Plan
-
Patient Disposition: Intermediate/SNF
Discharge Diagnosis/Procedures: Generalized weakness, ambulatory dysfunction, urinary tract infection, leukocytosis, hypothyroidism, Daily alcohol use
Condition: Fair
Diet: Regular
Activity: With assistance and As tolerated
Driving Restrictions: No driving
Bathing Restrictions: OK to Shower
Blood Work: Repeat CBC 1 week after hospital discharge with PCP. Repeat TSH with PCP 6 weeks. Follow-up with hematology oncology if persistent leukocytosis.
Other Services: PT and OT
Activity Restrictions/Additional Instructions:
Wound Care Instructions
L upper breast/abdomen: clean with soap and water, Nizoral cream bid until healed.
R great toe: clean with soap and water, open to air.
*If starts to bleed then dry dressing daily.
Air cushion when sitting, can take upon discharge
Follow-up with a neurologist
Workup of iron [id number] with GI doctor
You need to see a taker down , as you have had positive ALBA and SS-A and SS-B AB .
Instructions: Preventing falls in adults, Generalized Weakness (DC)
Referrals:
Last Alcala DO [Active] - (Follow up with neurosurgeon who placed your shunt, or you can establish care with new office)
Marty Flores MD [Family Provider] - in less than 1 week (Call your Primary Care Provider to schedule follow up appointment within 1 week of hospital discharge.)
Guicho Rosario MD [Active] - (Depending on what your next bloodwork shows, your Primary Care Provider may recommend a referral to Hematology)
Additional Discharge Medication Instructions: New medications:
- Amoxicillin 500mg capsule: Take 1 capsule two times per day for 5 days.
- Ketoconazole cream and miconazole powder: Continue to use as instructed.
Continue your other medications as directed from prior to admission. Follow up with your Primary Care Doctor for questions about medication changes and refills.
Prescriptions:
New
amoxicillin 500 mg Capsule
500 mg PO BID 5 Days Qty: 10 0RF
ketoconazole 2 % Cream
1 applic topical BID Qty: 15 0RF
miconazole nitrate [Miconazorb AF] 2 % Powder
1 applic topical BID Qty: 85 0RF
cyanocobalamin (vitamin B-12) 1,000 mcg capsule
1,000 mcg PO DAILY Qty: 30 0RF
ferrous sulfate 325 mg (65 mg iron) tablet
325 mg PO DAILY Qty: 30 0RF
docusate sodium [Colace] 100 mg capsule
100 mg PO BID Qty: 60 0RF
polyethylene glycol 3350 [ClearLax] 17 gram powder in packet
17 g PO DAILY Qty: 30 0RF
Continued
calcium carbonate 500 mg calcium (1,250 mg) Tablet
500 mg PO DAILY
sertraline 100 mg tablet
50 mg PO DAILY
levothyroxine 88 mcg tablet
88 mcg PO DAILY
mirabegron [Myrbetriq] 50 mg tablet extended release 24 hr
50 mg PO DAILY
thiamine HCl (vitamin B1) 100 mg Tablet
100 mg PO BID Qty: 0 0RF
folic acid 1 mg Tablet
1 mg PO DAILY Qty: 0 0RF
cholecalciferol (vitamin D3) [Vitamin D3] 25 mcg (1,000 unit) Tablet
25 mcg PO DAILY
Discharge Orders:
Discharge Patient (As Directed); Ordered 08/09/24
Ordered By: Rosie Muro
Discharge Date and Time
Print Language: GREEK
[2024-08-09] MEDS: FERRLECIT 110 MG IV (13:58)
[2024-08-09] MEDS: SENOKOT 17.2 MG PO (14:58)
[2024-08-09] MEDS: MILK OF MAGNESIA 30 ML PO (14:58)
[2024-08-09 15:19] VITALS: BP 109/64
--- NOTE | 2024-08-09 15:24 | SUR.PHASEI ---
Pt awake and alert; oriented to self/place birthdate; forgetful; anxious at times. DIEZ well; OOB to chair/BR with assist x1/walker; very unsteady w/OOB activity; denies weakness/dizziness. VSS. On room air- pulse ox 99%, no SOB noted. Abd soft,
sl rounded, jass PO; appetite fair. Incont urine; voids at times in BR. Afebrile; warm sand dry. Ppt currently off unit for renal US. Will continue to monitor.
[2024-08-09 16:06] LABS: Folate 16.1 ng/ml (2.76-20)
--- NOTE | 2024-08-09 17:53 | PTCARENOTE ---
Report called to [facility]/4th floor- FERNANDA Rahman @ 16:45.
[2024-08-09] MEDS: LOVENOX 40 MG SC (17:55)
== END 2024-08-09 20:09 | DRG 690 ==
LOC: 4 EAST ACU 10:59
PROVIDERS: Student in an Organized Health Care Education/Training Program; ADMITTING PHYSICIAN Internal Medicine; ATTENDING PHYSICIAN Hospitalist; CONSULT PHYSICIAN Internal Medicine Infectious Disease; EMERGENCY PHYSICIAN Student in an Organized Health Care Education/Training Program; FAMILY PHYSICIAN Family Medicine
DX: N39.0 Urinary tract infection, site not specified (principal); F03.A4 Unspecified dementia, mild, with anxiety; F03.A3 Unspecified dementia, mild, with mood disturbance; Z87.891 Personal history of nicotine dependence; K80.20 Calculus of gallbladder without cholecystitis without obstruction; F32.A Depression, unspecified; E03.9 Hypothyroidism, unspecified; Z11.52 Encounter for screening for COVID-19
CPT/HCPCS: 70450; 71046; 73660; 76775; 80048; 80053; 81003; 81015; 82077; 82607; 82728; 82746; 83540; 83550; 84145; 84439; 84443; 85025; 85027; 87040; 87086; 87088; 87186; 87811; 96360; 97116; 97163; 97167; 97530; 99284; J2916

== ENCOUNTER → 2024-08-13 10:38 | Outpatient (REF) | payer OTHER, SELFPAY ==
[2024-08-13 11:44] LABS: Hematocrit 33.8 % (37.0-47.0); Hemoglobin 11.3 g/dL (12.0-16.0); Mean Corp Hgb Conc. 33.4 g/dL (33.0-37.0); Mean Corpuscular Hgb 30.6 pg (27.0-31.0); Mean Corpuscular Volume 91.6 fL (81.0-99.0); Mean Platelet Volume 10.8 fL (7.4-10.4); Platelet Count 401 10^3/uL (130-400); Red Blood Cell Count 3.69 10^6/uL (4.20-5.40); Red Cell Dist. Width 13.1 % (11.5-14.5); White Blood Cell Count 11.1 10^3/uL (4.8-10.8)
[2024-08-13 14:49] LABS: Blood Urea Nitrogen 18 mg/dl (7-17); Calcium 8.8 mg/dl (8.4-10.2); Carbon Dioxide 24 mmol/L (22-30); Chloride 100 mmol/L (98-107); Glucose 81 mg/dl (70-99); Potassium 4.8 mmol/L (3.5-5.1); Sodium 136 mmol/L (135-145); eGFR > 60.00
== END ==
LOC: OLABP 10:38
PROVIDERS: ATTENDING PHYSICIAN Family Medicine
DX: F03.90 Unspecified dementia, unspecified severity, without behavioral disturbance, psychotic disturbance, mood disturbance, and anxiety (principal); D64.9 Anemia, unspecified; M62.81 Muscle weakness (generalized); D72.829 Elevated white blood cell count, unspecified; N39.0 Urinary tract infection, site not specified; B96.20 Unspecified Escherichia coli [E. coli] as the cause of diseases classified elsewhere
CPT/HCPCS: 36415; 80048; 85027

== ENCOUNTER → 2024-08-16 09:30 | Outpatient (REF) | payer OTHER, MEDICARE, SELFPAY ==
[2024-08-16 10:51] LABS: Hematocrit 36.2 % (37.0-47.0); Mean Corp Hgb Conc. 33.1 g/dL (33.0-37.0); Mean Corpuscular Hgb 30.7 pg (27.0-31.0); Mean Corpuscular Volume 92.6 fL (81.0-99.0); Mean Platelet Volume 10.2 fL (7.4-10.4); Platelet Count 471 10^3/uL (130-400); Red Blood Cell Count 3.91 10^6/uL (4.20-5.40); Red Cell Dist. Width 13.2 % (11.5-14.5)
== END ==
LOC: OLABP 09:30
PROVIDERS: ATTENDING PHYSICIAN Family Medicine
DX: F03.90 Unspecified dementia, unspecified severity, without behavioral disturbance, psychotic disturbance, mood disturbance, and anxiety (principal); D64.9 Anemia, unspecified; M62.81 Muscle weakness (generalized); D72.829 Elevated white blood cell count, unspecified; N39.0 Urinary tract infection, site not specified; B96.20 Unspecified Escherichia coli [E. coli] as the cause of diseases classified elsewhere
CPT/HCPCS: 36415; 85027

== ENCOUNTER → 2024-08-23 12:51 | Outpatient (REF) | payer OTHER, SELFPAY ==
[2024-08-23 13:43] LABS: % Basophils 0.6 % (0-2); % Eosinophils 1.2 % (0-6); % Immature Granulocytes 0.7 % (0-0.5); % Lymphocytes 25.6 % (20.5-51.1); % Monocytes 9.6 % (1.7-9.3); % Neutrophils 62.3 % (42.2-75.2); Absolute Basophils 0.1 10^3/uL (0-0.2); Absolute Eosinophils 0.1 10^3/uL (0-0.7); Absolute Immature Granulocytes 0.1 10^3/uL (0-0.05); Absolute Lymphocytes 2.2 10^3/uL (1.2-3.4); Absolute Monocytes 0.8 10^3/uL (0.1-0.6); Absolute Neutrophils 5.3 10^3/uL (1.4-6.5); Hematocrit 34.4 % (37.0-47.0); Hemoglobin 11.1 g/dL (12.0-16.0); Mean Corp Hgb Conc. 32.3 g/dL (33.0-37.0); Mean Corpuscular Hgb 29.8 pg (27.0-31.0); Mean Corpuscular Volume 92.2 fL (81.0-99.0); Mean Platelet Volume 10.6 fL (7.4-10.4); Nucleated Red Blood Cells % 0 %; Platelet Count 379 10^3/uL (130-400); Red Blood Cell Count 3.73 10^6/uL (4.20-5.40); Red Cell Dist. Width 13.7 % (11.5-14.5); White Blood Cell Count 8.5 10^3/uL (4.8-10.8)
== END ==
LOC: OLABP 12:51
PROVIDERS: ATTENDING PHYSICIAN Family Medicine
DX: F03.90 Unspecified dementia, unspecified severity, without behavioral disturbance, psychotic disturbance, mood disturbance, and anxiety (principal); D64.9 Anemia, unspecified; M62.81 Muscle weakness (generalized); D72.829 Elevated white blood cell count, unspecified; N39.0 Urinary tract infection, site not specified; B96.20 Unspecified Escherichia coli [E. coli] as the cause of diseases classified elsewhere
CPT/HCPCS: 36415; 85025